=== PATIENT | female | born 1955 | race Caucasian/White ===

== ENCOUNTER 2021-03-10 17:46 | Inpatient (IN) | payer MEDICARE, BC ==
--- NOTE | 2021-03-10 21:08 | EDM.PDOC ---
ED HPI GENERAL MEDICAL PROBLEM - General Chief Complaint: Fever Stated Complaint: FLU??? TIRED WEAK Time Seen by Provider: 03/10/21 18:51 Source of Information: Reports: Patient History Limitations: Reports: No Limitations - History of Present Illness INITIAL COMMENTS - FREE TEXT/NARRATIVE: 65 yo female presents with fever chills and SOB. Symptoms have been present for 2 weeks. coughing. SOB and dizziness with activity. presented to ER with oxygen saturation 86% at rest. last fever was earlier today and was 101. She has been taking tylenol and ibuprofen for fever suppression she has been very fatigue. She also complains of ABD pain, and nausea unable to tolerate oral intake. She does feel hungry but but after a few bits feels very nauseated. headache and abdomen pain Pain Score (Numeric/FACES): 10 Back Pain Score (Numeric/FACES): 10 - Related Data Allergies Allergy/AdvReac Type Severity Reaction Status Date / Time No Known Allergies Allergy Verified 02/16/19 11:09 Home Meds: Home Meds Levothyroxine [Synthroid] 88 mcg PO ACBREAKFAST 05/15/16 [History] Sertraline HCl 25 mg PO DAILY 01/05/19 [History] traMADol HCl [Tramadol HCl] 50 mg PO TID PRN 01/05/19 [History] Past Medical History HEENT History: Reports: None Cardiovascular History: Reports: High Cholesterol Gastrointestinal History: Reports: GERD, Hiatal Hernia Genitourinary History: Reports: Renal Calculus [employer] History: Reports: Musculoskeletal History: Reports: Back Pain, Chronic, Other (See Below) Other Musculoskeletal History: left shoulder pain Psychiatric History: Reports: Anxiety, Depression Endocrine/Metabolic History: Reports: Hypothyroidism - Infectious Disease History Infectious Disease History: Reports: Chicken Pox, Measles, Mumps, Shingles - Past Surgical History HEENT Surgical History: Reports: Oral Surgery Cardiovascular Surgical History: Reports: None GI Surgical History: Reports: Colonoscopy, EGD, Sujatha Fundoplication Female Surgical History: Reports: None Endocrine Surgical History: Reports: Other (See Below) Other Endocrine Surgeries/Procedures: goiter attached to right side of thyroid; ultrasound scheduled for thursday, Musculoskeletal Surgical History: Reports: None Dermatological Surgical History: Reports: None Social & Family History - Family History Family Medical History: No Pertinent Family History - Tobacco Use Tobacco Use Status *Q: Never Tobacco User - Caffeine Use Caffeine Use: Reports: Coffee - Recreational Drug Use Recreational Drug Use: No ED ROS GENERAL - Review of Systems Review Of Systems: See Below Constitutional: Reports: Fever, Chills, Malaise, Fatigue HEENT: Denies: Sinus Problem Respiratory: Reports: Shortness of Breath, Cough Cardiovascular: Denies: Chest Pain GI/Abdominal: Reports: Nausea, Vomiting ED EXAM, GI/ABD - Physical Exam Exam: See Below Exam Limited By: No Limitations General Appearance: Alert, WD/WN, No Apparent Distress Head: Atraumatic, Normocephalic Neck: Normal Inspection, Supple, Non-Tender, Full Range of Motion Respiratory/Chest: No Accessory Muscle Use, Rhonchi (bases), Other (oxygen saturation improved to 92% on 2 L NC) Cardiovascular: Regular Rate, Rhythm, No Murmur GI/Abdominal Exam: Soft, Non-Tender, No Distention Back Exam: Normal Inspection, Full Range of Motion. No: CVA Tenderness (R), CVA Tenderness (L) Neurological: Alert, Oriented Psychiatric: Normal Affect, Normal Mood Skin Exam: Warm, Dry, Intact Course - Vital Signs Last Recorded V/S: Last Vital Signs Temp 37.0 C 03/10/21 23:08 Pulse 76 03/10/21 23:08 Resp 16 03/10/21 23:08 BP 107/65 03/10/21 23:08 Pulse Ox 94 L 03/10/21 23:08 - Orders/Labs/Meds Orders: Active Orders 24 hr Category Date Time Status Chest 1V Frontal [CR] Stat Exams 03/10/21 20:20 Taken Sodium Chloride 0.9% [Normal Saline] 1,000 ml Med 03/10/21 21:15 Active IV ASDIRECTED Medication Orders Acetaminophen (Acetaminophen 325 Mg Tab) 650 mg PO Q4H PRN PRN Reason: Fever Greater Than 101 Dexamethasone (Dexamethasone 4 Mg/Ml Sdv) 6 mg IVPUSH DAILY BEN Stop: 03/19/21 09:01 Last Admin: 03/10/21 22:36 Dose: 6 mg Documented by: JAHAIRA Sodium Chloride (Normal Saline) 1,000 mls @ 175 mls/hr IV ASDIRECTED BEN Last Admin: 03/10/21 22:34 Dose: 175 mls/hr Documented by: HOWATER Remdesivir 100 mg/ Sodium (Chloride) 100 mls @ 100 mls/hr IV Q24H BEN Stop: 03/14/21 22:59 Levothyroxine Sodium (Levothyroxine 88 Mcg Tab) 88 mcg PO ACBREAKFAST BEN Ondansetron HCl (Ondansetron 4 Mg/2 Ml Sdv) 4 mg IV Q4H PRN PRN Reason: Nausea/Vomiting Sertraline HCl (Sertraline 25 Mg Tab) 25 mg PO DAILY BEN Sodium Chloride (Sodium Chloride 0.9% 10 Ml Syringe) 10 ml FLUSH ASDIRECTED PRN PRN Reason: Keep Vein Open Tramadol HCl (Tramadol 50 Mg Tab) 50 mg PO TID PRN PRN Reason: Pain Last Admin: 03/10/21 22:42 Dose: 50 mg Documented by: JAHAIRA Labs: Laboratory Tests 03/10/21 03/10/21 03/10/21 Range/Units 19:06 20:36 20:36 WBC 3.2 L (4.5-11.0) K/uL RBC 4.33 (3.30-5.50) M/uL Hgb 12.6 (12.0-15.0) g/dL Hct 38.1 (36.0-48.0) % MCV 88 (80-98) fL MCH 29 (27-31) pg MCHC 33 (32-36) % Plt Count 195 (150-400) K/uL Neut % (Auto) 55.9 (36-66) % Lymph % (Auto) 32.2 (24-44) % [place] % (Auto) 10.7 H (2-6) % Eos % (Auto) 0.3 L (2-4) % Baso % (Auto) 0.9 (0-1) % Sodium 137 L (140-148) mmol/L Potassium 3.6 (3.6-5.2) mmol/L Chloride 98 L (100-108) mmol/L Carbon Dioxide 26 (21-32) mmol/L Anion Gap 16.6 H (5.0-14.0) mmol/L BUN 16 (7-18) mg/dL Creatinine 0.8 (0.6-1.0) mg/dL Est Cr Clr Drug Dosing 59.73 mL/min Estimated GFR (MDRD) > 60 (>60) Glucose 110 H (74-106) mg/dL Calcium 8.2 L (8.5-10.1) mg/dL SARS CoV-2 RNA Rapid MANUEL Positive H Meds: Medications Generic Name Dose Route Start Last Admin Trade Name Shan PRN Reason Stop Dose Admin Acetaminophen 650 mg 03/10/21 21:55 Acetaminophen 325 Mg Tab PO Q4H PRN Fever Greater Than 101 Dexamethasone 6 mg 03/10/21 22:00 03/10/21 22:36 Dexamethasone 4 Mg/Ml Sdv IVPUSH 03/19/21 09:01 6 mg DAILY BEN Administration Sodium Chloride 1,000 mls @ 175 mls/hr 03/10/21 21:15 03/10/21 22:34 Normal Saline IV 175 mls/hr ASDIRECTED BEN Administration Remdesivir 100 mg/ Sodium 100 mls @ 100 mls/hr 03/11/21 22:00 Chloride IV 03/14/21 22:59 Q24H BEN Levothyroxine Sodium 88 mcg 03/11/21 07:30 Levothyroxine 88 Mcg Tab PO ACBREAKFAST BEN Ondansetron HCl 4 mg 03/10/21 21:48 Ondansetron 4 Mg/2 Ml Sdv IV Q4H PRN Nausea/Vomiting Sertraline HCl 25 mg 03/11/21 09:00 Sertraline 25 Mg Tab PO DAILY BEN Sodium Chloride 10 ml 03/10/21 21:48 Sodium Chloride 0.9% 10 Ml Syringe FLUSH ASDIRECTED PRN Keep Vein Open Tramadol HCl 50 mg 03/10/21 21:56 03/10/21 22:42 Tramadol 50 Mg Tab PO 50 mg TID PRN Administration Pain Discontinued Medications Generic Name Dose Route Start Last Admin Trade Name Shan PRN Reason Stop Dose Admin Dexamethasone Confirm 03/10/21 22:39 03/10/21 22:46 Dexamethasone 4 Mg/Ml Sdv Administered 03/10/21 22:40 Not Given Dose 4 mg .ROUTE .STK-MED ONE Remdesivir 200 mg/ Sodium 250 mls @ 250 mls/hr 03/10/21 22:00 Chloride IV 03/10/21 22:59 ONETIME ONE Ondansetron HCl 4 mg 03/10/21 21:11 03/10/21 22:37 Ondansetron 4 Mg/2 Ml Sdv IVPUSH 03/10/21 21:12 4 mg ONETIME ONE Administration Departure - Departure Time of Disposition: 22:30 Disposition: Admitted As Inpatient 65 Condition: Good Clinical Impression: COVID - Discharge Information *PRESCRIPTION DRUG MONITORING PROGRAM REVIEWED*: Not Applicable *COPY OF PRESCRIPTION DRUG MONITORING REPORT IN PATIENT LANDON: Not Applicable Sepsis Event Note (ED) - Evaluation Sepsis Screening Result: No Definite Risk - Focused Exam Vital Signs: Vital Signs Temp Pulse Resp BP Pulse Ox Pulse Ox 03/10/21 20:45 95 03/10/21 19:14 76 20 129/79 90 L 03/10/21 18:57 36.9 C 80 18 129/79 89 L - My Orders Last 24 Hours: My Active Orders 03/10/21 20:20 Chest 1V Frontal [CR] Stat 03/10/21 21:15 Sodium Chloride 0.9% [Normal Saline] 1,000 ml IV ASDIRECTED - Assessment/Plan Last 24 Hours: My Active Orders 03/10/21 20:20 Chest 1V Frontal [CR] Stat 03/10/21 21:15 Sodium Chloride 0.9% [Normal Saline] 1,000 ml IV ASDIRECTED
[2021-03-10] MEDS ORDERED: Ondansetron 4 MG/2 ML SDV IVPUSH ONE (21:11)
[2021-03-10] MEDS ORDERED: Sodium Chloride 0.9% 1,000 ML IV SCH (21:15)
[2021-03-10] MEDS ORDERED: Sodium Chloride 0.9% 10 ML Syringe FLUSH PRN (21:48)
[2021-03-10] MEDS ORDERED: Ondansetron 4 MG/2 ML SDV IV PRN (21:48)
[2021-03-10] MEDS ORDERED: traMADol 50 MG Tab PO PRN (21:56)
[2021-03-10] MEDS ORDERED: REMDESIVIR 200 MG in Sodium Chloride 0.9% 250 ML IV ONE (22:00)
[2021-03-10] MEDS ORDERED: Dexamethasone 4 MG/ML SDV IVPUSH SCH (22:00)
[2021-03-10] MEDS: Dexamethasone 4 MG/ML SDV IVPUSH SCH (22:36)
[2021-03-10] MEDS ORDERED: Dexamethasone 4 MG/ML SDV ONE (22:39)
--- NOTE | 2021-03-11 00:16 | HP ---
CHIEF COMPLAINT: Cough with shortness of breath. HISTORY OF PRESENT ILLNESS: A 65-year-old who started having symptoms about 2 weeks ago along with her significant other, although he has not been as bad. Breathing has gotten progressively worse. She has had a nonproductive cough and fever. Eventually, things were just worse today and came into the emergency room. She states that she has had some nausea and really not much of an appetite. Came in and was noted to be hypoxic with O2 saturations down in the mid 80% and did have positive COVID-19. Because of her hypoxia, I was asked to admit the patient for further evaluation and treatment. The patient does report the fever today, nonproductive cough, shortness of breath, body aches. No loss of sensation of taste or smell and has had decreased appetite. PAST MEDICAL HISTORY: 1. Bladder cancer with resection of the bladder mass and chemotherapy. 2. Hypothyroidism. 3. Sujatha fundoplication in the past. CURRENT MEDICATIONS: Levothyroxine 88 mcg daily, sertraline 25 mg daily, tramadol 50 mg p.o. t.i.d. p.r.n. ALLERGIES: NONE. SOCIAL HISTORY: Quit smoking in May when she was diagnosed with bladder cancer and did use nicotine vaping, but has not done that now for a couple of weeks. Denies any alcohol use. FAMILY HISTORY: Noncontributory. REVIEW OF SYSTEMS: Denies headaches, vision changes, upper respiratory symptoms. Does have the shortness of breath; cough, nonproductive. No chest pain, but has generalized body aches, fever. She has some nausea with decreased appetite. No diarrhea or constipation. No urinary problems reported. No swelling in her legs. No skin problems reported. No neurologic complaints reported. OBJECTIVE: VITAL SIGNS: Weight 63 kg; temperature 36.9; pulse 80; blood pressure 129/79; respirations 18; and O2 saturation 89%, but apparently did drop down to 84% on room air, 95% on 2 L. HEENT: Pharynx: Slightly dry mucous membranes in her mouth, but otherwise unremarkable. NECK: Supple. No adenopathy, thyromegaly, JVD, or carotid bruits. LUNGS: Some rhonchi in the bases, right side worse than left. HEART: Regular without murmurs. ABDOMEN: Soft, nontender. No mass or organomegaly palpated. EXTREMITIES: No edema. SKIN: Unremarkable. Pedal pulses are palpable and equal bilaterally. NEUROLOGIC: Cranial nerves II through XII are grossly intact. Was alert and oriented. Mental status was normal. LABORATORY DATA: COVID-19 test was positive. White count 3.2, hemoglobin 12.6, platelets 195,000. Sodium 137, potassium 3.6, BUN of 16, creatinine of 0.8, glucose 110, calcium was slightly low at 8.2. Chest x-ray does show a lower lobe infiltrate in both lungs, await Radiology interpretation. ASSESSMENT: 1. COVID-19 pneumonia with hypoxia. We will admit her for remdesivir, dexamethasone, and oxygen and home when able to be weaned off the oxygen. Transfer care to the Hospitalist Service in the morning. Admit her under inpatient status. 2. Bladder cancer with bladder mass resection and chemotherapy. Some previous Sujatha fundoplication, which may be affecting her appetite. Mahesh Wan MD /[id number]
[2021-03-11] MEDS: Acetaminophen 325 MG Tab PO PRN ×2 (01:18→13:00)
[2021-03-11] MEDS: Levothyroxine 88 MCG Tab PO SCH (08:11)
[2021-03-11] MEDS: Sertraline 25 MG Tab PO SCH (08:11)
--- NOTE | 2021-03-11 12:09 | PCM.PN ---
- General Info Date of Service: 03/11/21 Subjective Update: Ms. Lepe is a 65-year-old woman who was admitted through the emergency department last night with hypoxia secondary to COVID-19. She has been started on Decadron and remdesivir. She has been stable since admission currently requiring 2 to 3 L of oxygen per minute via nasal cannula to maintain oxygen saturations in the low 90s. Functional Status: Reports: Urinating. Denies: Tolerating Diet - Review of Systems General: Reports: Weakness, Fatigue. Denies: Fever, Chills Pulmonary: Reports: Shortness of Breath, Cough. Denies: Pleuritic Chest Pain, Sputum, Hemoptysis, Wheezing Cardiovascular: Reports: Dyspnea on Exertion. Denies: Chest Pain, Palpitations, Orthopnea, PND, Edema, Lightheadedness Gastrointestinal: Reports: No Symptoms - Patient Data Vitals - Most Recent: Last Vital Signs Temp 94.8 F L 03/11/21 07:44 Pulse 69 03/11/21 07:44 Resp 16 03/11/21 07:44 BP 121/69 03/11/21 07:44 Pulse Ox 92 L 03/11/21 07:44 Weight - Most Recent: 145 lb 9.6 oz Lab Results Last 24 Hours: Laboratory Results - last 24 hr 03/10/21 03/10/21 03/10/21 Range/Units 19:06 20:36 20:36 WBC 3.2 L (4.5-11.0) K/uL RBC 4.33 (3.30-5.50) M/uL Hgb 12.6 (12.0-15.0) g/dL Hct 38.1 (36.0-48.0) % MCV 88 (80-98) fL MCH 29 (27-31) pg MCHC 33 (32-36) % Plt Count 195 (150-400) K/uL Neut % (Auto) 55.9 (36-66) % Lymph % (Auto) 32.2 (24-44) % [place] % (Auto) 10.7 H (2-6) % Eos % (Auto) 0.3 L (2-4) % Baso % (Auto) 0.9 (0-1) % Sodium 137 L (140-148) mmol/L Potassium 3.6 (3.6-5.2) mmol/L Chloride 98 L (100-108) mmol/L Carbon Dioxide 26 (21-32) mmol/L Anion Gap 16.6 H (5.0-14.0) mmol/L BUN 16 (7-18) mg/dL Creatinine 0.8 (0.6-1.0) mg/dL Est Cr Clr Drug Dosing 59.73 mL/min Estimated GFR (MDRD) > 60 (>60) Glucose 110 H (74-106) mg/dL Calcium 8.2 L (8.5-10.1) mg/dL Total Bilirubin (0.2-1.0) mg/dL Direct Bilirubin (0.0-0.2) mg/dL Indirect Bilirubin AST (15-37) U/L ALT (12-78) U/L Alkaline Phosphatase (46-116) U/L Total Protein (6.4-8.2) g/dL Albumin (3.4-5.0) g/dL Globulin (2.3-3.5) g/dL Albumin/Globulin Ratio (1.2-2.2) SARS CoV-2 RNA Rapid MANUEL Positive H 03/10/21 03/11/21 03/11/21 Range/Units 21:56 04:20 04:20 WBC 2.4 L (4.5-11.0) K/uL RBC 4.24 (3.30-5.50) M/uL Hgb 12.2 (12.0-15.0) g/dL Hct 37.8 (36.0-48.0) % MCV 89 (80-98) fL MCH 29 (27-31) pg MCHC 32 (32-36) % Plt Count 194 (150-400) K/uL Neut % (Auto) (36-66) % Lymph % (Auto) (24-44) % [place] % (Auto) (2-6) % Eos % (Auto) (2-4) % Baso % (Auto) (0-1) % Sodium 141 (140-148) mmol/L Potassium 3.3 L (3.6-5.2) mmol/L Chloride 100 (100-108) mmol/L Carbon Dioxide 25 (21-32) mmol/L Anion Gap 19.3 H (5.0-14.0) mmol/L BUN 17 (7-18) mg/dL Creatinine 1.0 (0.6-1.0) mg/dL Est Cr Clr Drug Dosing 47.79 mL/min Estimated GFR (MDRD) 55 L (>60) Glucose 156 H (74-106) mg/dL Calcium 8.2 L (8.5-10.1) mg/dL Total Bilirubin 0.3 (0.2-1.0) mg/dL Direct Bilirubin 0.12 (0.0-0.2) mg/dL Indirect Bilirubin 0.18 AST 42 H (15-37) U/L ALT 27 (12-78) U/L Alkaline Phosphatase 91 (46-116) U/L Total Protein 7.0 (6.4-8.2) g/dL Albumin 3.4 (3.4-5.0) g/dL Globulin 3.6 H (2.3-3.5) g/dL Albumin/Globulin Ratio 0.9 L (1.2-2.2) SARS CoV-2 RNA Rapid MANUEL 03/11/21 Range/Units 04:20 WBC (4.5-11.0) K/uL RBC (3.30-5.50) M/uL Hgb (12.0-15.0) g/dL Hct (36.0-48.0) % MCV (80-98) fL MCH (27-31) pg MCHC (32-36) % Plt Count (150-400) K/uL Neut % (Auto) (36-66) % Lymph % (Auto) (24-44) % [place] % (Auto) (2-6) % Eos % (Auto) (2-4) % Baso % (Auto) (0-1) % Sodium (140-148) mmol/L Potassium (3.6-5.2) mmol/L Chloride (100-108) mmol/L Carbon Dioxide (21-32) mmol/L Anion Gap (5.0-14.0) mmol/L BUN (7-18) mg/dL Creatinine (0.6-1.0) mg/dL Est Cr Clr Drug Dosing mL/min Estimated GFR (MDRD) (>60) Glucose (74-106) mg/dL Calcium (8.5-10.1) mg/dL Total Bilirubin 0.3 (0.2-1.0) mg/dL Direct Bilirubin 0.09 (0.0-0.2) mg/dL Indirect Bilirubin 0.2 AST 40 H (15-37) U/L ALT 28 (12-78) U/L Alkaline Phosphatase 90 (46-116) U/L Total Protein 6.8 (6.4-8.2) g/dL Albumin 3.1 L (3.4-5.0) g/dL Globulin 3.7 H (2.3-3.5) g/dL Albumin/Globulin Ratio 0.8 L (1.2-2.2) SARS CoV-2 RNA Rapid MANUEL Med Orders - Current: Current Medications Acetaminophen (Acetaminophen 325 Mg Tab) 650 mg PO Q4H PRN PRN Reason: Fever Greater Than 101 Last Admin: 03/11/21 01:18 Dose: 650 mg Documented by: Dexamethasone (Dexamethasone 4 Mg/Ml Sdv) 6 mg IVPUSH DAILY [facility] Stop: 03/19/21 09:01 Last Admin: 03/10/21 22:36 Dose: 6 mg Documented by: Enoxaparin Sodium (Enoxaparin 40 Mg/0.4 Ml Syringe) 40 mg SUBCUT DAILY [facility] Remdesivir 100 mg/ Sodium (Chloride) 100 mls @ 100 mls/hr IV Q24H [facility] Stop: 03/14/21 22:59 Levothyroxine Sodium (Levothyroxine 88 Mcg Tab) 88 mcg PO ACBREAKFAST [facility] Last Admin: 03/11/21 08:11 Dose: 88 mcg Documented by: Ondansetron HCl (Ondansetron 4 Mg/2 Ml Sdv) 4 mg IV Q4H PRN PRN Reason: Nausea/Vomiting Sertraline HCl (Sertraline 25 Mg Tab) 25 mg PO DAILY [facility] Last Admin: 03/11/21 08:11 Dose: 25 mg Documented by: Sodium Chloride (Sodium Chloride 0.9% 10 Ml Syringe) 10 ml FLUSH ASDIRECTED PRN PRN Reason: Keep Vein Open Tramadol HCl (Tramadol 50 Mg Tab) 50 mg PO TID PRN PRN Reason: Pain Last Admin: 03/10/21 22:42 Dose: 50 mg Documented by: Discontinued Medications Dexamethasone (Dexamethasone 4 Mg/Ml Sdv) Confirm Administered Dose 4 mg .ROUTE .STK-MED ONE Stop: 03/10/21 22:40 Last Admin: 03/10/21 22:46 Dose: Not Given Documented by: Sodium Chloride (Normal Saline) 1,000 mls @ 175 mls/hr IV ASDIRECTED BEN Last Admin: 03/10/21 22:34 Dose: 175 mls/hr Documented by: Remdesivir 200 mg/ Sodium (Chloride) 250 mls @ 250 mls/hr IV ONETIME ONE Stop: 03/10/21 22:59 Last Admin: 03/11/21 00:33 Dose: 250 mls/hr Documented by: Ondansetron HCl (Ondansetron 4 Mg/2 Ml Sdv) 4 mg IVPUSH ONETIME ONE Stop: 03/10/21 21:12 Last Admin: 03/10/21 22:37 Dose: 4 mg Documented by: - Exam Quality Assessment: Supplemental Oxygen, DVT Prophylaxis General: Alert, Oriented, Cooperative, Mild Distress Lungs: Rales. No: Crackles, Rhonchi, Wheezing Cardiovascular: Regular Rate, Regular Rhythm, No Murmurs GI/Abdominal Exam: Soft, Non-Tender, No Organomegaly, No Distention Extremities: Non-Tender, No Pedal Edema - Patient Data Lab Results Last 24 hrs: Laboratory Results - last 24 hr 03/10/21 03/10/21 03/10/21 Range/Units 19:06 20:36 20:36 WBC 3.2 L (4.5-11.0) K/uL RBC 4.33 (3.30-5.50) M/uL Hgb 12.6 (12.0-15.0) g/dL Hct 38.1 (36.0-48.0) % MCV 88 (80-98) fL MCH 29 (27-31) pg MCHC 33 (32-36) % Plt Count 195 (150-400) K/uL Neut % (Auto) 55.9 (36-66) % Lymph % (Auto) 32.2 (24-44) % [place] % (Auto) 10.7 H (2-6) % Eos % (Auto) 0.3 L (2-4) % Baso % (Auto) 0.9 (0-1) % Sodium 137 L (140-148) mmol/L Potassium 3.6 (3.6-5.2) mmol/L Chloride 98 L (100-108) mmol/L Carbon Dioxide 26 (21-32) mmol/L Anion Gap 16.6 H (5.0-14.0) mmol/L BUN 16 (7-18) mg/dL Creatinine 0.8 (0.6-1.0) mg/dL Est Cr Clr Drug Dosing 59.73 mL/min Estimated GFR (MDRD) > 60 (>60) Glucose 110 H (74-106) mg/dL Calcium 8.2 L (8.5-10.1) mg/dL Total Bilirubin (0.2-1.0) mg/dL Direct Bilirubin (0.0-0.2) mg/dL Indirect Bilirubin AST (15-37) U/L ALT (12-78) U/L Alkaline Phosphatase (46-116) U/L Total Protein (6.4-8.2) g/dL Albumin (3.4-5.0) g/dL Globulin (2.3-3.5) g/dL Albumin/Globulin Ratio (1.2-2.2) SARS CoV-2 RNA Rapid MANUEL Positive H 03/10/21 03/11/21 03/11/21 Range/Units 21:56 04:20 04:20 WBC 2.4 L (4.5-11.0) K/uL RBC 4.24 (3.30-5.50) M/uL Hgb 12.2 (12.0-15.0) g/dL Hct 37.8 (36.0-48.0) % MCV 89 (80-98) fL MCH 29 (27-31) pg MCHC 32 (32-36) % Plt Count 194 (150-400) K/uL Neut % (Auto) (36-66) % Lymph % (Auto) (24-44) % [place] % (Auto) (2-6) % Eos % (Auto) (2-4) % Baso % (Auto) (0-1) % Sodium 141 (140-148) mmol/L Potassium 3.3 L (3.6-5.2) mmol/L Chloride 100 (100-108) mmol/L Carbon Dioxide 25 (21-32) mmol/L Anion Gap 19.3 H (5.0-14.0) mmol/L BUN 17 (7-18) mg/dL Creatinine 1.0 (0.6-1.0) mg/dL Est Cr Clr Drug Dosing 47.79 mL/min Estimated GFR (MDRD) 55 L (>60) Glucose 156 H (74-106) mg/dL Calcium 8.2 L (8.5-10.1) mg/dL Total Bilirubin 0.3 (0.2-1.0) mg/dL Direct Bilirubin 0.12 (0.0-0.2) mg/dL Indirect Bilirubin 0.18 AST 42 H (15-37) U/L ALT 27 (12-78) U/L Alkaline Phosphatase 91 (46-116) U/L Total Protein 7.0 (6.4-8.2) g/dL Albumin 3.4 (3.4-5.0) g/dL Globulin 3.6 H (2.3-3.5) g/dL Albumin/Globulin Ratio 0.9 L (1.2-2.2) SARS CoV-2 RNA Rapid MANUEL 03/11/21 Range/Units 04:20 WBC (4.5-11.0) K/uL RBC (3.30-5.50) M/uL Hgb (12.0-15.0) g/dL Hct (36.0-48.0) % MCV (80-98) fL MCH (27-31) pg MCHC (32-36) % Plt Count (150-400) K/uL Neut % (Auto) (36-66) % Lymph % (Auto) (24-44) % [place] % (Auto) (2-6) % Eos % (Auto) (2-4) % Baso % (Auto) (0-1) % Sodium (140-148) mmol/L Potassium (3.6-5.2) mmol/L Chloride (100-108) mmol/L Carbon Dioxide (21-32) mmol/L Anion Gap (5.0-14.0) mmol/L BUN (7-18) mg/dL Creatinine (0.6-1.0) mg/dL Est Cr Clr Drug Dosing mL/min Estimated GFR (MDRD) (>60) Glucose (74-106) mg/dL Calcium (8.5-10.1) mg/dL Total Bilirubin 0.3 (0.2-1.0) mg/dL Direct Bilirubin 0.09 (0.0-0.2) mg/dL Indirect Bilirubin 0.2 AST 40 H (15-37) U/L ALT 28 (12-78) U/L Alkaline Phosphatase 90 (46-116) U/L Total Protein 6.8 (6.4-8.2) g/dL Albumin 3.1 L (3.4-5.0) g/dL Globulin 3.7 H (2.3-3.5) g/dL Albumin/Globulin Ratio 0.8 L (1.2-2.2) SARS CoV-2 RNA Rapid MANUEL Result Diagrams: 03/11/21 04:20 03/11/21 04:20 Sepsis Event Note - Evaluation Sepsis Screening Result: Possible Sepsis Risk - Focused Exam Vital Signs: Vital Signs Temp Pulse Resp BP Pulse Ox 03/11/21 07:44 94.8 F L 69 16 121/69 92 L 03/11/21 07:00 97 03/11/21 01:27 99.8 F 03/11/21 00:27 95 - Problem List Review Problem List Initiated/Reviewed/Updated: Yes - My Orders Last 24 Hours: My Active Orders 03/11/21 12:00 Enoxaparin [Lovenox] 40 mg SUBCUT DAILY 03/12/21 05:00 CBC WITH AUTO DIFF [HEME] Timed COMPREHENSIVE METABOLIC PN,CMP [CHEM] Timed 03/12/21 05:11 CRP [C-REACTIVE PROTEIN] [CHEM] AM D Dimer [D-DIMER QUANTITATIVE] [COAG] AM - Plan Plan:: ASSESSMENT AND PLAN COVID-19 INFECTION WITH HYPOXIA-x10 days ago, more short of breath over the past few days -Follow-up labs in a.m. -Lovenox 40 mg subcu daily -Remdesivir daily for 5 days per protocol, today is day 2 -Decadron 6 mg IV daily, today is day 2 -Limit IV fluids ACUTE HYPOXIC RESPIRATORY FAILURE-secondary to COVID-19 infection -Supplemental oxygen as needed HISTORY OF BLADDER CANCER-status post surgical resection as well as chemotherapy MAINTENANCE ISSUES -DVT prophylaxis; Lovenox as above -GI prophylaxis; not indicated -Cai catheter; not indicated -Nutrition; regular diet -Nicotine dependence; not required CODE STATUS-FULL CODE ADMISSION STATUS-patient will be admitted to inpatient status, expect at least a 2 night hospital stay for evaluation and management of problems as outlined above. At the time of this admission I do not reasonably expected evaluation and management of this problem will require more than a 96 hour hospital stay. DISPOSITION-anticipate discharge to home after the hospital stay. PRIMARY CARE PROVIDER-Aletha Hernandez
[2021-03-11] MEDS: Enoxaparin 40 MG/0.4 ML Syringe SUBCUT SCH (13:02)
--- NOTE | 2021-03-11 13:29 | CR ---
CHEST: Portable 03/10/2021 at 8:55 PM CLINICAL HISTORY:Covid positive COMPARISON:None FINDINGS: There is some minimal patchy density in the left lower lung field which may be lower lobe or lingula. There is faint patchy density in the right upper and lower lobe. Impression: Patchy bilateral densities are most consistent with a pneumonitis.
[2021-03-11] MEDS ORDERED: Potassium Chloride 20 MEQ Tab.ER PO ONE (18:00)
[2021-03-11] MEDS: REMDESIVIR 100 MG in Sodium Chloride 0.9% 100 ML IV SCH (21:35)
[2021-03-12] MEDS: Acetaminophen 325 MG Tab PO PRN (06:19)
[2021-03-12] MEDS: Enoxaparin 40 MG/0.4 ML Syringe SUBCUT SCH (09:04)
[2021-03-12] MEDS: Dexamethasone 4 MG/ML SDV IVPUSH SCH (09:04)
[2021-03-12] MEDS: Levothyroxine 88 MCG Tab PO SCH (09:04)
[2021-03-12] MEDS: Sertraline 25 MG Tab PO SCH (09:04)
[2021-03-12] MEDS ORDERED: Calcium Carbonate 500 MG Tab.Chew PO PRN (13:40)
--- NOTE | 2021-03-12 16:10 | PCM.PN ---
- General Info Date of Service: 03/12/21 Subjective Update: Ms. Lepe has remained stable over the past 24 hours. Appetite remains somewhat poor. She continues to require supplemental oxygen at 3 L/min, no decline in ox ygenation over the last 24 hours noted. Functional Status: Reports: Ambulating, Urinating. Denies: Tolerating Diet - Review of Systems General: Reports: Weakness, Fatigue. Denies: Fever, Chills Pulmonary: Reports: Shortness of Breath, Cough. Denies: Pleuritic Chest Pain, Sputum, Hemoptysis, Wheezing Cardiovascular: Reports: Dyspnea on Exertion. Denies: Chest Pain, Palpitations, Orthopnea, PND, Edema, Lightheadedness Gastrointestinal: Reports: No Symptoms Genitourinary: Reports: No Symptoms - Patient Data Vitals - Most Recent: Last Vital Signs Temp 98.4 F 03/12/21 14:12 Pulse 62 03/12/21 14:12 Resp 16 03/12/21 14:12 BP 113/69 03/12/21 14:12 Pulse Ox 91 L 03/12/21 14:12 Weight - Most Recent: 145 lb 9.598 oz I&O - Last 24 Hours: Intake & Output 03/12/21 03/12/21 03/12/21 06:59 14:59 22:59 Intake Total 500 Balance 500 Lab Results Last 24 Hours: Laboratory Results - last 24 hr 03/12/21 03/12/21 03/12/21 Range/Units 06:08 06:08 06:08 WBC 4.6 (4.5-11.0) K/uL RBC 4.18 (3.30-5.50) M/uL Hgb 12.1 (12.0-15.0) g/dL Hct 37.3 (36.0-48.0) % MCV 89 (80-98) fL MCH 29 (27-31) pg MCHC 32 (32-36) % Plt Count 214 (150-400) K/uL Neut % (Auto) 52.2 (36-66) % Lymph % (Auto) 35.6 (24-44) % Worth % (Auto) 11.1 H (2-6) % Eos % (Auto) 0.2 L (2-4) % Baso % (Auto) 0.9 (0-1) % D-Dimer, Quantitative 1169.83 H (0.0-500.0) ng/mL Total Bilirubin 0.2 (0.2-1.0) mg/dL Direct Bilirubin 0.09 (0.0-0.2) mg/dL Indirect Bilirubin TNP AST 35 (15-37) U/L ALT 26 (12-78) U/L Alkaline Phosphatase 87 (46-116) U/L C-Reactive Protein (0.0-0.3) mg/dL Total Protein 6.4 (6.4-8.2) g/dL Albumin 2.9 L (3.4-5.0) g/dL Globulin 3.5 (2.3-3.5) g/dL Albumin/Globulin Ratio 0.8 L (1.2-2.2) 03/12/21 Range/Units 06:08 WBC (4.5-11.0) K/uL RBC (3.30-5.50) M/uL Hgb (12.0-15.0) g/dL Hct (36.0-48.0) % MCV (80-98) fL MCH (27-31) pg MCHC (32-36) % Plt Count (150-400) K/uL Neut % (Auto) (36-66) % Lymph % (Auto) (24-44) % Worth % (Auto) (2-6) % Eos % (Auto) (2-4) % Baso % (Auto) (0-1) % D-Dimer, Quantitative (0.0-500.0) ng/mL Total Bilirubin (0.2-1.0) mg/dL Direct Bilirubin (0.0-0.2) mg/dL Indirect Bilirubin AST (15-37) U/L ALT (12-78) U/L Alkaline Phosphatase (46-116) U/L C-Reactive Protein 0.80 H (0.0-0.3) mg/dL Total Protein (6.4-8.2) g/dL Albumin (3.4-5.0) g/dL Globulin (2.3-3.5) g/dL Albumin/Globulin Ratio (1.2-2.2) Med Orders - Current: Current Medications Acetaminophen (Acetaminophen 325 Mg Tab) 650 mg PO Q4H PRN PRN Reason: Fever Greater Than 101 Last Admin: 03/12/21 06:19 Dose: 650 mg Documented by: Calcium Carbonate/Glycine (Calcium Carbonate 500 Mg Tab.Chew) 1,000 mg PO Q2H PRN PRN Reason: Indigestion Dexamethasone (Dexamethasone 4 Mg/Ml Sdv) 6 mg IVPUSH DAILY [facility] Stop: 03/19/21 09:01 Last Admin: 03/12/21 09:04 Dose: 6 mg Documented by: Enoxaparin Sodium (Enoxaparin 40 Mg/0.4 Ml Syringe) 40 mg SUBCUT DAILY [facility] Last Admin: 03/12/21 09:04 Dose: 40 mg Documented by: Remdesivir 100 mg/ Sodium (Chloride) 100 mls @ 100 mls/hr IV Q24H [facility] Stop: 03/14/21 22:59 Last Admin: 03/11/21 21:35 Dose: 100 mls/hr Documented by: Levothyroxine Sodium (Levothyroxine 88 Mcg Tab) 88 mcg PO ACBREAKFAST [facility] Last Admin: 03/12/21 09:04 Dose: 88 mcg Documented by: Ondansetron HCl (Ondansetron 4 Mg/2 Ml Sdv) 4 mg IV Q4H PRN PRN Reason: Nausea/Vomiting Sertraline HCl (Sertraline 25 Mg Tab) 25 mg PO DAILY [facility] Last Admin: 03/12/21 09:04 Dose: 25 mg Documented by: Sodium Chloride (Sodium Chloride 0.9% 10 Ml Syringe) 10 ml FLUSH ASDIRECTED PRN PRN Reason: Keep Vein Open Tramadol HCl (Tramadol 50 Mg Tab) 50 mg PO TID PRN PRN Reason: Pain Last Admin: 03/10/21 22:42 Dose: 50 mg Documented by: Discontinued Medications Dexamethasone (Dexamethasone 4 Mg/Ml Sdv) Confirm Administered Dose 4 mg .ROUTE .STK-MED ONE Stop: 03/10/21 22:40 Last Admin: 03/10/21 22:46 Dose: Not Given Documented by: Sodium Chloride (Normal Saline) 1,000 mls @ 175 mls/hr IV ASDIRECTED [facility] Last Admin: 03/10/21 22:34 Dose: 175 mls/hr Documented by: Remdesivir 200 mg/ Sodium (Chloride) 250 mls @ 250 mls/hr IV ONETIME ONE Stop: 03/10/21 22:59 Last Admin: 03/11/21 00:33 Dose: 250 mls/hr Documented by: Ondansetron HCl (Ondansetron 4 Mg/2 Ml Sdv) 4 mg IVPUSH ONETIME ONE Stop: 03/10/21 21:12 Last Admin: 03/10/21 22:37 Dose: 4 mg Documented by: Potassium Chloride (Potassium Chloride 20 Meq Tab.Er) 40 meq PO ONETIME ONE Stop: 03/11/21 18:01 Last Admin: 03/11/21 18:43 Dose: 40 meq Documented by: - Exam Quality Assessment: Supplemental Oxygen, DVT Prophylaxis. No: Central Line/PICC, Urine Catheter General: Alert, Oriented, Cooperative, Mild Distress Lungs: Normal Respiratory Effort, Rales. No: Crackles, Rhonchi, Wheezing Cardiovascular: Regular Rate, Regular Rhythm, No Murmurs GI/Abdominal Exam: Soft, Non-Tender, No Organomegaly, No Distention Extremities: Non-Tender, No Pedal Edema - Patient Data Lab Results Last 24 hrs: Laboratory Results - last 24 hr 03/12/21 03/12/21 03/12/21 Range/Units 06:08 06:08 06:08 WBC 4.6 (4.5-11.0) K/uL RBC 4.18 (3.30-5.50) M/uL Hgb 12.1 (12.0-15.0) g/dL Hct 37.3 (36.0-48.0) % MCV 89 (80-98) fL MCH 29 (27-31) pg MCHC 32 (32-36) % Plt Count 214 (150-400) K/uL Neut % (Auto) 52.2 (36-66) % Lymph % (Auto) 35.6 (24-44) % Worth % (Auto) 11.1 H (2-6) % Eos % (Auto) 0.2 L (2-4) % Baso % (Auto) 0.9 (0-1) % D-Dimer, Quantitative 1169.83 H (0.0-500.0) ng/mL Total Bilirubin 0.2 (0.2-1.0) mg/dL Direct Bilirubin 0.09 (0.0-0.2) mg/dL Indirect Bilirubin TNP AST 35 (15-37) U/L ALT 26 (12-78) U/L Alkaline Phosphatase 87 (46-116) U/L C-Reactive Protein (0.0-0.3) mg/dL Total Protein 6.4 (6.4-8.2) g/dL Albumin 2.9 L (3.4-5.0) g/dL Globulin 3.5 (2.3-3.5) g/dL Albumin/Globulin Ratio 0.8 L (1.2-2.2) 03/12/21 Range/Units 06:08 WBC (4.5-11.0) K/uL RBC (3.30-5.50) M/uL Hgb (12.0-15.0) g/dL Hct (36.0-48.0) % MCV (80-98) fL MCH (27-31) pg MCHC (32-36) % Plt Count (150-400) K/uL Neut % (Auto) (36-66) % Lymph % (Auto) (24-44) % Worth % (Auto) (2-6) % Eos % (Auto) (2-4) % Baso % (Auto) (0-1) % D-Dimer, Quantitative (0.0-500.0) ng/mL Total Bilirubin (0.2-1.0) mg/dL Direct Bilirubin (0.0-0.2) mg/dL Indirect Bilirubin AST (15-37) U/L ALT (12-78) U/L Alkaline Phosphatase (46-116) U/L C-Reactive Protein 0.80 H (0.0-0.3) mg/dL Total Protein (6.4-8.2) g/dL Albumin (3.4-5.0) g/dL Globulin (2.3-3.5) g/dL Albumin/Globulin Ratio (1.2-2.2) Result Diagrams: 03/12/21 06:08 03/11/21 04:20 Sepsis Event Note - Evaluation Sepsis Screening Result: No Definite Risk - Focused Exam Vital Signs: Vital Signs Temp Pulse Resp BP Pulse Ox 03/12/21 14:12 98.4 F 62 16 113/69 91 L 03/12/21 13:29 96 03/12/21 12:00 63 16 95 03/12/21 09:00 98.7 F 69 16 103/81 94 L 08/17/21 07:19 93 L - Problem List Review Problem List Initiated/Reviewed/Updated: Yes - My Orders Last 24 Hours: My Active Orders 03/12/21 13:40 Calcium Carbonate [Tums] 1,000 mg PO Q2H PRN 03/13/21 08:00 RT Evaluate for Home Oxygen [RC] Click to Edit - Plan Plan:: ASSESSMENT AND PLAN COVID-19 INFECTION WITH HYPOXIA-stable over the last 24 hours, continues to r equire supplemental oxygen at 3 L/min via nasal cannula -Follow-up labs in a.m. -Lovenox 40 mg subcu daily -Remdesivir daily for 5 days per protocol, today is day 3 -Decadron 6 mg IV daily, today is day 3 -Limit IV fluids ACUTE HYPOXIC RESPIRATORY FAILURE-secondary to COVID-19 infection -Supplemental oxygen as needed HISTORY OF BLADDER CANCER-status post surgical resection as well as chemotherapy MAINTENANCE ISSUES -DVT prophylaxis; Lovenox as above -GI prophylaxis; not indicated -Cai catheter; not indicated -Nutrition; regular diet -Nicotine dependence; not required CODE STATUS-FULL CODE ADMISSION STATUS-patient will be admitted to inpatient status, expect at least a 2 night hospital stay for evaluation and management of problems as outlined above. At the time of this admission I do not reasonably expected evaluation and management of this problem will require more than a 96 hour hospital stay. DISPOSITION-anticipate discharge to home after the hospital stay. PRIMARY CARE PROVIDER-Aletha Hernandez
[2021-03-12] MEDS: REMDESIVIR 100 MG in Sodium Chloride 0.9% 100 ML IV SCH (21:53)
[2021-03-13] MEDS: Sertraline 25 MG Tab PO SCH (08:30)
[2021-03-13] MEDS: Enoxaparin 40 MG/0.4 ML Syringe SUBCUT SCH (08:30)
[2021-03-13] MEDS: Levothyroxine 88 MCG Tab PO SCH (08:30)
[2021-03-13] MEDS: Dexamethasone 4 MG/ML SDV IVPUSH SCH (08:31)
[2021-03-13 08:46] VITALS: BP 125/66; PULSE 52
[2021-03-13] MEDS: Acetaminophen 325 MG Tab PO PRN (11:41)
--- NOTE | 2021-03-13 15:13 | PCM.DCSUM1 ---
Discharge Summary - Hospital Course Brief History: Ms. Lepe is a 65-year-old woman who was admitted through the emergency department with weakness and hypoxia secondary to COVID-19 infection with bilateral pulmonary infiltrates. - Discharge Data Discharge Date: 03/13/21 Discharge Disposition: Home, Self-Care 01 Condition: Fair - Referral to Home Health Primary Care Physician: LOCO Farmer - Discharge Diagnosis/Problem(s) (1) Acute hypoxemic respiratory failure due to COVID-19 SNOMED Code(s): 182928444 ICD Code: U07.1 - COVID-19; J96.01 - ACUTE RESPIRATORY FAILURE WITH HYPOXIA Status: Acute (2) Bilateral pneumonia SNOMED Code(s): 042591048 ICD Code: J18.9 - PNEUMONIA, UNSPECIFIED ORGANISM Status: Acute (3) COVID SNOMED Code(s): 083398460 ICD Code: U07.1 - COVID-19 Status: Acute - Patient Summary/Data Hospital Course: Ms. Lepe is a 65-year-old woman who was admitted through the emergency department with hypoxia secondary to COVID-19. She had been ill for approximately 9 days prior to admission. Over the past few days prior to admission she had developed progressive increase in shortness of breath. Chest x-ray did show bilateral pulmonary infiltrates consistent with COVID-19 infection. She has been started on Decadron and remdesivir. Supplemental oxygen was initiated in the emergency department and saturations were within desired range on 3 L of oxygen per minute via nasal cannula. She received Decadron and remdesivir throughout her hospital stay. Oxygen use remained stable and there was no progressive worsening of her hypoxia. She will be discharged home on 3 L of oxygen via nasal cannula. She was qualified for oxygen prior to discharge with an oxygen saturation of 87% on room air on the day of discharge. Follow-up appointment will be scheduled with her primary care provider within 1 week. Activity will be as tolerated and she will resume her usual diet. - Patient Instructions Diet: Usual Diet as Tolerated Activity: As Tolerated Other/Special Instructions: Please schedule follow-up appointment with primary care provider within 1 week. Please arrange for home oxygen 3 L/min via nasal cannula. - Discharge Plan *PRESCRIPTION DRUG MONITORING PROGRAM REVIEWED*: Not Applicable *COPY OF PRESCRIPTION DRUG MONITORING REPORT IN PATIENT [place]: Not Applicable Home Medications: Home Meds Levothyroxine [Synthroid] 88 mcg PO ACBREAKFAST 05/15/16 [History] Sertraline HCl 25 mg PO DAILY 01/05/19 [History] traMADol HCl [Tramadol HCl] 50 mg PO TID PRN 01/05/19 [History] Patient Handouts: COVID-19 Frequently Asked Questions Referrals: Aletha Hernandez PA [Primary Care Provider] - 04/02/21 1:30 pm - Discharge Summary/Plan Comment DC Time >30 min.: No Total # of Minutes for Discharge Time: 20 - Patient Data Vitals - Most Recent: Last Vital Signs Temp 95.9 F L 03/13/21 08:45 Pulse 52 L 03/13/21 08:45 Resp 16 03/13/21 08:45 BP 125/66 03/13/21 08:45 Pulse Ox 96 03/13/21 13:05 Weight - Most Recent: 145 lb 9.598 oz I&O - Last 24 hours: Intake & Output 03/13/21 03/13/21 03/13/21 06:59 14:59 22:59 Intake Total 500 240 Balance 500 240 Lab Results - Last 24 hrs: Laboratory Results - last 24 hr 03/13/21 Range/Units 04:20 Total Bilirubin 0.3 (0.2-1.0) mg/dL Direct Bilirubin 0.11 (0.0-0.2) mg/dL Indirect Bilirubin 0.19 AST 40 H (15-37) U/L ALT 27 (12-78) U/L Alkaline Phosphatase 85 (46-116) U/L Total Protein 6.2 L (6.4-8.2) g/dL Albumin 2.8 L (3.4-5.0) g/dL Globulin 3.4 (2.3-3.5) g/dL Albumin/Globulin Ratio 0.8 L (1.2-2.2) Med Orders - Current: Current Medications Acetaminophen (Acetaminophen 325 Mg Tab) 650 mg PO Q4H PRN PRN Reason: Fever Greater Than 101 Last Admin: 03/13/21 11:41 Dose: 650 mg Documented by: Calcium Carbonate/Glycine (Calcium Carbonate 500 Mg Tab.Chew) 1,000 mg PO Q2H PRN PRN Reason: Indigestion Dexamethasone (Dexamethasone 4 Mg/Ml Sdv) 6 mg IVPUSH DAILY [facility] Stop: 03/19/21 09:01 Last Admin: 03/13/21 08:31 Dose: 6 mg Documented by: Enoxaparin Sodium (Enoxaparin 40 Mg/0.4 Ml Syringe) 40 mg SUBCUT DAILY [facility] Last Admin: 03/13/21 08:30 Dose: 40 mg Documented by: Remdesivir 100 mg/ Sodium (Chloride) 100 mls @ 100 mls/hr IV Q24H [facility] Stop: 03/14/21 22:59 Last Admin: 03/12/21 21:53 Dose: 100 mls/hr Documented by: Levothyroxine Sodium (Levothyroxine 88 Mcg Tab) 88 mcg PO ACBREAKFAST [facility] Last Admin: 03/13/21 08:30 Dose: 88 mcg Documented by: Ondansetron HCl (Ondansetron 4 Mg/2 Ml Sdv) 4 mg IV Q4H PRN PRN Reason: Nausea/Vomiting Sertraline HCl (Sertraline 25 Mg Tab) 25 mg PO DAILY [facility] Last Admin: 03/13/21 08:30 Dose: 25 mg Documented by: Sodium Chloride (Sodium Chloride 0.9% 10 Ml Syringe) 10 ml FLUSH ASDIRECTED PRN PRN Reason: Keep Vein Open Tramadol HCl (Tramadol 50 Mg Tab) 50 mg PO TID PRN PRN Reason: Pain Last Admin: 03/10/21 22:42 Dose: 50 mg Documented by: Discontinued Medications Dexamethasone (Dexamethasone 4 Mg/Ml Sdv) Confirm Administered Dose 4 mg .ROUTE .STK-MED ONE Stop: 03/10/21 22:40 Last Admin: 03/10/21 22:46 Dose: Not Given Documented by: Sodium Chloride (Normal Saline) 1,000 mls @ 175 mls/hr IV ASDIRECTED [facility] Last Admin: 03/10/21 22:34 Dose: 175 mls/hr Documented by: Remdesivir 200 mg/ Sodium (Chloride) 250 mls @ 250 mls/hr IV ONETIME ONE Stop: 03/10/21 22:59 Last Admin: 03/11/21 00:33 Dose: 250 mls/hr Documented by: Ondansetron HCl (Ondansetron 4 Mg/2 Ml Sdv) 4 mg IVPUSH ONETIME ONE Stop: 03/10/21 21:12 Last Admin: 03/10/21 22:37 Dose: 4 mg Documented by: Potassium Chloride (Potassium Chloride 20 Meq Tab.Er) 40 meq PO ONETIME ONE Stop: 03/11/21 18:01 Last Admin: 03/11/21 18:43 Dose: 40 meq Documented by: - Exam Quality Assessment: Reports: Supplemental Oxygen General: Reports: Alert, Oriented, Cooperative, Mild Distress Lungs: Reports: Clear to Auscultation, Normal Respiratory Effort Cardiovascular: Reports: Regular Rate, Regular Rhythm, No Murmurs GI/Abdominal Exam: Soft, Non-Tender, No Organomegaly, No Distention Extremities: Non-Tender, No Pedal Edema
== END 2021-03-13 15:00 | disposition home or self-care (01) | DRG 177 ==
LOC: JP.ED 17:46 → JP.2SS 21:48
PROVIDERS: ADMIT Family Medicine; ATTEND Hospitalist
PROC: 8E0ZXY6 Isolation (ICD-10-PCS; principal; 2021-03-10)
PROC: XW033E5 Introduction of Remdesivir Anti-infective into Peripheral Vein, Percutaneous Approach, New Technology Group 5 (ICD-10-PCS; principal; 2021-03-10)
DX: U07.1 COVID-19 (principal); J12.82 Pneumonia due to coronavirus disease 2019; J96.01 Acute respiratory failure with hypoxia; E03.9 Hypothyroidism, unspecified; E78.00 Pure hypercholesterolemia, unspecified; K21.9 Gastro-esophageal reflux disease without esophagitis; K44.9 Diaphragmatic hernia without obstruction or gangrene; G89.29 Other chronic pain; M54.9 Dorsalgia, unspecified; F41.9 Anxiety disorder, unspecified; F32.9 Major depressive disorder, single episode, unspecified; Z98.890 Other specified postprocedural states; Z85.51 Personal history of malignant neoplasm of bladder; Z79.890 Hormone replacement therapy; Z79.899 Other long term (current) drug therapy; Z20.822 Contact with and (suspected) exposure to COVID-19
CPT/HCPCS: 36415; 71045 ×2; 80048; 85025; 99285; U0002; 80076; 85027; 85379; 86140; 94762; A9270-GY; J1100; J1650; J2405; J7030; J7050